=== PATIENT | female | born 1995 | race Two or more races ===

== ENCOUNTER 2022-02-03 18:20 | Emergency (ER) | payer MEDICARE, OTHER ==
[~2022-02-03] VITALS: Ht 167.6 cm; Wt 68.9 kg
--- NOTE | 2022-02-03 18:35 | NUR ---
RECEVED PT 26 YRS FEMALE CAME BY RAFAT C/O ALOC RESPIRATION SPONT AND EASY NO DISTRESS
--- NOTE | 2022-02-03 19:30 | NUR ---
LOOD DROW BY LAB TACK
--- NOTE | 2022-02-03 19:36 | NUR ---
HAND OFF TO [facility]
[2022-02-03 19:47] LABS: BASOPHILS # (AUTO) 0.1 K/uL (0.0-0.2); BASOPHILS % (AUTO) 0.5 % (0.0-2.0); EOSINOPHILS % (AUTO) 0.1 % (0.0-6.0); HEMATOCRIT 37 % (33-45); HEMOGLOBIN 12.1 g/dL (11.5-14.8); LYMPHOCYTES # (AUTO) 2.4 K/uL (0.8-4.8); LYMPHOCYTES % (AUTO) 21.5 % (20.0-44.0); MEAN CORPUSCULAR HGB CONC 33 g/dl (31.0-36.0); MEAN CORPUSCULAR VOLUME 76 fL (82-100); MONOCYTES # (AUTO) 0.8 K/uL (0.1-1.30); MONOCYTES % (AUTO) 6.9 % (2.0-12.0); NEUTROPHILS # (AUTO) 8.1 K/uL (1.8-8.9); PLATELET COUNT (AUTO) 297 K/uL (150-450); WHITE BLOOD COUNT (AUTO) 11.4 K/uL (4.3-11.0)
[2022-02-03 20:18] LABS: CALCIUM, SERUM 8.9 mg/dL (8.5-10.1); CARBON DIOXIDE 30 mmol/L (21-32); CHLORIDE 103 mmol/L (98-107); CREATININE 0.7 mg/dL (0.6-1.3); GLUCOSE 98 mg/dL (74-106); POTASSIUM 3.6 mmol/L (3.5-5.1); SODIUM SERUM 141 mmol/L (136-145); UREA NITROGEN, BLOOD 13 mg/dL (7-18)
[2022-02-03 20:21] LABS: ALANINE AMINOTRANSFERASE 21 U/L (12-78); ALBUMIN 3.8 g/dL (3.4-5.0); ALKALINE PHOSPHATASE 86 U/L (46-116); ASPARTATE AMINOTRANSFERASE 11 U/L (15-37); BILIRUBIN,DIRECT 0.1 mg/dL (0.0-0.2); BILIRUBIN,TOTAL 0.2 mg/dL (0.2-1.0); TOTAL PROTEIN, SERUM 7.6 g/dL (6.4-8.2)
--- NOTE | 2022-02-03 21:06 | NUR ---
[facility] CALLED FOR BLS TRANSPORT. ETA 1-1.5 HRS
--- NOTE | 2022-02-03 21:24 | NUR ---
PATIENT GOING TO RADIOLOGY
--- NOTE | 2022-02-03 21:28 | NUR ---
REPORT GIVEN TO [facility]
[2022-02-03 22:08] VITALS: BP 110/66
--- NOTE | 2022-02-03 22:08 | NUR ---
REPORT GIVEN TO EMS AT BEDSIDE
== END 2022-02-03 22:09 ==
LOC: ER 18:24
DX: R07.89 Other chest pain (principal)
CPT/HCPCS: 36415; 71045-TC; 80048-TC; 80076-TC; 84484-TC; 84702-TC; 85025-TC